=== PATIENT | female | born 1985 | race Caucasian/White ===

== ENCOUNTER 2021-08-19 11:07 | Outpatient (REF) | payer OTHER, SELFPAY ==
[2021-08-19 12:47] LABS: COVID-19 Test Negative (Negative)
== END 2021-08-19 11:08 | disposition home or self-care (01) ==
LOC: HO.LAB 11:07
PROVIDERS: Visit Provider Internal Medicine
DX: Z20.822 Contact with and (suspected) exposure to COVID-19 (principal)
CPT/HCPCS: 36415; 87635; C9803

== ENCOUNTER 2024-12-23 10:09 | Emergency (ER) | payer OTHER, SELFPAY ==
--- NOTE | ~2024-12-23 | XR_ITS ---
EXAMINATION: XR HIP 1 VIEW RIGHT WITH PELVIS HISTORY: painful COMPARISON: There are no prior studies for comparison. FINDINGS: A single AP view of the pelvis and two views of the right hip are submitted. Osseous mineralization is normal. There is no fracture or dislocation. The joint space is maintained. The soft tissues are unremarkable. XR/XR hip RT w PEL1V IMPRESSION: Unremarkable examination of the right hip. Electronically signed by: Roberth Chi MD 12/23/2024 11:12 AM EDT
[2024-12-23 10:31] VITALS: BP 117/81; PULSE 79; RESP 18; TEMP 36.8; O2SAT 99; BMI 24.7
--- NOTE | 2024-12-23 11:56 | ED_ITS ---
HPI - General Adult General Chief complaint: General Medical Stated complaint: R Hip Leg Pain Time Seen by Provider: 12/23/24 11:53 Source: patient Mode of arrival: ambulatory Limitations: no limitations History of Present Illness ED Provider: Mary Kate Berger PA-C HPI narrative: Patient is a 39 year old assigned female at with no reported medical history presenting to the emergency department today with right hip pain. Patient states that over the last few days she has had right sided hip pain that radiates into her right leg. Patient denies any dizziness, lightheadedness, abdominal pain, nausea, vomiting, fever, chills, blurry vision, double vision, loss of vision, chest pain, difficulty breathing, shortness of breath, back pain, night sweats, pain with urination, increased urinary frequency, increased urinary urgency, blood in her urine or stool, syncope or a near syncopal episode, recent trauma or falls, bowel incontinence, bladder incontinence, or any other complaints at this time. Onset (ago): day(s) Location: right (hip pain) Radiation: distal Relieving factors: none Associated symptoms: denies other symptoms Treatments prior to arrival: none Related Data Previous Rx's ?Medication ?Instructions ?Recorded prednisone 20 mg tablet 20 mg PO DAILY 7 days #7 tabs 12/23/24 Allergies Allergy/AdvReac Type Severity Reaction Status Date / Time bee pollen [BEE STINGS] Allergy Unknown UNKNOWN Verified 12/23/24 10:33 Sulfa (Sulfonamide Allergy Unknown UNKNOWN Verified 12/23/24 10:33 Antibiotics) [SULFA (SULFONAMIDE ANTIBIOTICS)] Review of Systems Constitutional: Constitutional: Reports no additional constitutional complaints, Denies chills, Denies fever(s) and Denies night sweats Eyes: Eyes: Reports no additional eye complaints, Denies blurry vision, Denies change in vision, Denies diplopia, Denies eye discharge, Denies loss of vision and Denies eye pain ENT: Denies dizziness Cardiovascular: Cardiovascular: Reports no additional cardiovascular complaints, Denies chest pain, Denies lightheadedness, Denies Loss of Consciousness and Denies dyspnea Respiratory: Respiratory: Reports no additional respiratory complaints and Denies dyspnea Gastrointestinal: Gastrointestinal: Reports no additional gastrointestinal complaints, Denies abdominal pain, Denies melena, Denies hematochezia, Denies change in bowel habits and Denies change in stool character Genitourinary: Genitourinary: Denies hematuria, Denies urinary frequency, Denies dysuria, Denies urinary incontinence, Denies urinary hesitancy and Denies urinary urgency Musculoskeletal: Musculoskeletal: Reports no additional musculoskeletal complaints, Denies numbness and Denies tingling Comments: right hip pain Neurologic: Denies dizziness, Denies loss of vision, Denies numbness and Denies tingling Psychiatric: Psychiatric: Reports no additional psychiatric complaints Endocrine: Endocrine: Reports no additional endocrine complaints Hematologic/Lymphatic: Hematologic/Lymphatic: Reports no additional hematologic/lymphatic complaints Allergic/Immunologic: Allergic/Immunologic: Reports no additional allergic/immunologic complaints [facility] Past Medical History Attestation statement: The following information was validated with the patient. Source: old records reviewed and nursing notes reviewed Social History Social History Advance Directives: No Advance Directives Information Provided: Yes Physical Exam ED Vital Signs: Vital Signs - 24 hr 12/23/24 10:31 12/23/24 12:42 Temperature 98.3 F 98.3 F Pulse Rate 79 79 Respiratory Rate 18 18 Blood Pressure 117/81 117/81 Pulse Oximetry 99 99 Oxygen Delivery Method Room Air Room Air BMI result Body Mass Index 24.7 Const General: cooperative, no acute distress, alert and awake Nutritional Appearance: well nourished Orientation/consciousness: patient oriented x3 HENMT Head: Yes normal to inspection and Yes atraumatic Ears: hearing grossly normal bilaterally and external ears normal General nose exam: Normal external nose present, no nasal discharge noted and no epistaxis Face and sinus: Yes normal facial exam, No abrasion and No laceration Mouth: Normal oral and palatal mucosa present, no drooling and no muffled voice Eyes General: appearance normal, both eyes and all related structures Periorbital: periorbital findings normal Eyelids: Yes eyelids normal Conjunctivae: conjunctivae normal Pupils: Equal, round and reactive pupils present EOM: EOMs intact bilaterally Neck Neck: Yes normal visual inspection, Yes full ROM and Yes no lymphadenopathy Resp Effort & Inspection: normal respiratory effort and able to speak in complete sentences Neuro General: patient oriented x3, moves all extremities and CN's II-XI intact bilaterally Cranial nerves: Yes Equal, round and reactive pupils present Cognition (Neuro): normal cognition Extrem General: Yes normal to inspection, Yes full ROM and Yes capillary refill normal Psych Appearance: grossly normal Mental Status: mental status grossly normal Affect: normal affect Attitude: cooperative Thought process: Normal thought process present Thought content: Normal thought content present Insight: Good insight present (Psych) Medications Administered Discontinued Medications Generic Name Dose Route Start Last Admin Trade Name Bg PRN Reason Stop Dose Admin Ketorolac Tromethamine 15 mg 12/23/24 12:10 12/23/24 12:38 Ketorolac Tromethamine 15 Mg/Ml Vial IM 12/23/24 12:11 15 mg ONCE ONE Administration Medical Decision Making Medical Decision Making [facility] Narrative: Patient is a 39 year old assigned female at with no reported medical history presenting to the emergency department today with right hip pain. Patient's physical exam was unremarkable. Patient's right hip x-ray showed no acute process. Patient's clinical presentation is most consistent with bursitis of the right hip. I explained my physical exam findings as well as all test results to the patient. I answered all questions asked by the patient. I stressed the importance of the patient taking her medication as directed (either prescribed or as the over the counter packaging recommends). I stressed the importance of the patient following up with her primary care provider and an orthopedic provider. I stressed the importance of the patient returning to the emergency department immediately if her symptoms were to worsen or if she were to develop any dizziness, shortness of breath, difficulty breathing, chest pain, blurry vision, loss of vision, nausea, vomiting, abdominal pain, fever, chills, back pain, or any other complaints. Patient verbalized agreement and understanding with this treatment plan and discharge. Differential Diagnosis Differential Diagnoses: The differential diagnosis associated with the presentation includes Bursitis Arthritis Hip pain Admission/Observation Consideration of admission/observation: Escalation of care including admission/observation considered Patient would have been admitted to the hospital had her work up had any findings where hospital admission was appropriate and her clinical presentation warranted hospital admission. Independent Interpretation I performed an independent interpretation of an: Plain X-Ray Interpretation: My interpretation is in agreement with the radiologist's impression of this imaging study. EXAMINATION: XR HIP 1 VIEW RIGHT WITH PELVIS HISTORY: painful COMPARISON: There are no prior studies for comparison. FINDINGS: A single AP view of the pelvis and two views of the right hip are submitted. Osseous mineralization is normal. There is no fracture or dislocation. The joint space is maintained. The soft tissues are unremarkable. XR/XR hip RT w PEL1V IMPRESSION: Unremarkable examination of the right hip. Electronically signed by: Roberth Chi MD 12/23/2024 11:12 AM EDT RP Dictated By: Roberth Chi MD Signed By: Electronically signed by Roberth Chi MD 12/23/24 1112 Radiology Impression Discussion of test interpretation with radiology: I have reviewed the radiologist's reading. Discharge Plan Discharge Clinical Impression: Bursitis Patient Disposition: Home, Self-Care Instructions: Hip Bursitis (ED) Additional Instructions: Follow up with your primary care provider and the orthopedic team. Return to the emergency department immediately if your symptoms worsen or if you develop any numbness, tingling, dizziness, shortness of breath, difficulty breathing, chest pain, blurry vision, loss of vision, nausea, vomiting, abdominal pain, fever, chills, back pain, or any other complaints. Please see the information below about our Patient Portal. If you are not yet enrolled in the [facility] Patient Portal, you will receive an enrollment email invitation following your visit to any [facility] setting. You may also self-enroll in the Patient Portal by visiting our website: [email or web address] The following information is required to access the Patient Portal: - Your [facility] Medical Record Number - Your personal home email address (must match what is in your electronic medical record, Registration staff can assist with this) - Name - Date of Capabilities of the Patient Portal: - Message some providers - View upcoming appointments - Access your health summary, medical history, and visit history - View current conditions and allergies - View procedure and lab results - View your medications, including guidelines, side effects, and precautions - Complete pre-appointment questionnaires requested by your provider - Ready summary reports of your office visits and procedures To access the Patient Portal Mobile [employer], follow these directions: - Search [employer] in the [employer] Store or Google [employer] Store - Download the [employer] - Search for [facility] - Enter your login/password Prescriptions: New prednisone 20 mg tablet 20 mg PO DAILY 7 Days Qty: 7 0RF Referrals: [facility] Family Medicine [Provider Group] (Call to establish and follow up with a primary care provider. If you already have a primary care provider, please follow up with them.) [facility] Primary Care, [facility] [Provider Group] (Call to establish and follow up with a primary care provider. If you already have a primary care provider, please follow up with them.) [facility] [Provider Group] (Call to establish and follow up with a primary care provider. If you already have a primary care provider, please follow up with them.) [facility] Primary Care, [facility] [Provider Group] (Call to establish and follow up with a primary care provider. If you already have a primary care provider, please follow up with them.) [facility] [Provider Group] (Call to establish and follow up with a primary care provider. If you already have a primary care provider, please follow up with them.) [facility] Orth[facility] [Provider Group] (Call to establish and follow up with the orthopedic team for your right hip pain. ) Interventions: ED Discharge Assessment Last Done: 12/23/24 12:42 Discharge Date/Time: 12/23/24 12:42 Print Language: Botswanan
[2024-12-23] MEDS: Ketorolac Tromethamine 15 MG/ML VIAL IM (12:38)
[2024-12-23 12:42] VITALS: BP 117/81; PULSE 79; RESP 18; TEMP 36.8; O2SAT 99
== END 2024-12-23 12:42 | disposition home or self-care (01) ==
PROVIDERS: Emergency Provider Emergency Medicine
DX: M70.71 Other bursitis of hip, right hip (principal); M79.604 Pain in right leg
CPT/HCPCS: 73502; 96372; 99283; 99284; J1885

== ENCOUNTER → 2024-12-23 10:40 | Outpatient (BNV) | payer OTHER, SELFPAY | PROVIDERS: Visit Provider Radiology Diagnostic Radiology | DX: M25.551 Pain in right hip (principal) | CPT/HCPCS: 73502 ==

== ENCOUNTER 2025-03-03 12:30 | Outpatient (AMB) | payer OTHER, SELFPAY ==
--- NOTE | 2025-03-03 12:39 | MHC.OFFVIS ---
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 Patient reports ongoing pain for about 2 months. Patient mentions that her pain is on the lateral aspect of her hip and it moves down to her leg. She notices that her pain is worse going up and down the stairs. Patient mentions that her hip gives out depending on what she does. She has tried taking Ibuprofen with mild relief. IMPRESSION: Unremarkable examination of the right hip. 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 Fernandes is a 39-year-old female who presents to the office today for evaluation of right hip pain. She points to the area that is anterior and slightly lateral to the hip. She denies groin pain. She reports that the pain has been ongoing for the past 2 months. She denies any injury or trauma to the area. Her pain did become so severe that she presented to the emergency department on 12/23/2024 where x-rays were obtained and negative for any acute fracture dislocation. She was diagnosed with bursitis at that time and was instructed to follow up with orthopedics outpatient for further evaluation and treatment. She was prescribed prednisone by the emergency department for 4 days which did help to alleviate her pain. Additionally, she has been taking ibuprofen which does help some but does not alleviate the pain completely. [facility] Social History (Updated 03/03/25 @ 12:44 by Tyrell Barrera) Alcohol intake: never Patient Tobacco Use Status: Current everyday Tobacco user Cigarettes Per Day: 10 Current occupational status: unemployed Physical Exam Vital Signs: BMI result Body Mass Index 24.5 Const General: cooperative, healthy appearing and no acute distress Resp Effort & Inspection: normal respiratory effort and able to speak in complete sentences Extrem Other: Right hip:Full hip ROM in all planes. No tenderness to palpation over the greater trochanteric bursa. Tenderness to palpation over the hip flexor. 4/5 strength with resisted hip flexion due to pain. Able to perform full knee extension, abduction, and abduction. Able to perform straight leg raise with pain at the hip flexor. NVI. Assessment & Plan Assessment & Plan (1) Tendinitis of right hip flexor: Code(s): M76.891 - Other specified enthesopathies of right lower limb, excluding foot Category: Medical Plan Ms. Fernandes is a 39-year-old female who presents to the office today for evaluation of right hip pain. She points to the area that is anterior and slightly lateral to the hip. She denies groin pain. She reports that the pain has been ongoing for the past 2 months. She denies any injury or trauma to the area. Her pain did become so severe that she presented to the emergency department on 12/23/2024 where x-rays were obtained and negative for any acute fracture dislocation. She was diagnosed with bursitis at that time and was instructed to follow up with orthopedics outpatient for further evaluation and treatment. She was prescribed prednisone by the emergency department for 4 days which did help to alleviate her pain. Additionally, she has been taking ibuprofen which does help some but does not alleviate the pain completely. While in the office today, we discussed hip flexor tendinitis and the treatment options. We discussed the role of physical therapy in which the patient is amenable to attend. Additionally, she does state that the prednisone ibuprofen was helping but did not alleviate her pain completely. Therefore, I have sent a prescription for Celebrex to the pharmacy to assist with inflammation and pain. She will discontinue the ibuprofen at this time. She will follow up in 6 weeks by telephone if she continues to have pain, but I am happy to see her sooner if needed. X-rays of the right hip which were obtained on 12/23/2024 revealed no fracture or dislocation. Unremarkable examination. Orders: Orders PT Evaluation and Treatment Today M76.891 - Other specified enthesopathies of right lower limb, excluding foot Medications: New celecoxib (Celebrex) 200 mg PO BID 60 caps 0RF 30 days Discontinued prednisone Discontinued Reason: Patient no longer taking 20 mg PO DAILY 7 days 7 tabs 0RF Coding Level of Care Code New Pt Level 3 (65735) Diagnoses Tendinitis of right hip flexor M76.891
[2025-03-03 12:44] VITALS: BMI 24.5
== END 2025-03-03 12:59 | disposition home or self-care (01) ==
LOC: HO.HOS 12:31
PROVIDERS: Visit Provider Physician Assistant
DX: M76.891 Other specified enthesopathies of right lower limb, excluding foot (principal)
CPT/HCPCS: 99203

== ENCOUNTER → 2025-03-03 12:30 | Outpatient (BNVA) | payer OTHER, SELFPAY | PROVIDERS: Visit Provider Physician Assistant | DX: M76.891 Other specified enthesopathies of right lower limb, excluding foot (principal) | CPT/HCPCS: 99202 ==

== ENCOUNTER 2025-04-24 13:22 | Emergency (ER) | payer OTHER, SELFPAY ==
[2025-04-24 13:34] VITALS: BP 134/77; PULSE 84; RESP 20; TEMP 36.4; O2SAT 98; BMI 25.9
--- NOTE | 2025-04-24 13:34 | ED_ITS ---
HPI - General Adult General Chief complaint: General Medical Stated complaint: Blood sugar high Time Seen by Provider: 04/24/25 14:24 Source: patient Mode of arrival: ambulatory Limitations: no limitations History of Present Illness ED Provider: HPI narrative: This is a 40-year-old woman who is a smoker, from [facility], on Suboxone for 7 years no ongoing drug use, otherwise healthy, reports have not hemoglobin A1c done at [facility] and was told she is prediabetic and this has been making her very nervous, she states that she has been taking her glucose at home before she eats and after she eats, she has had general malaise, chest pain or palpitations, concerned as she has diabetes in her family. 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 Related Data Home Medications ?Medication ?Instructions ?Recorded ?Confirmed buprenorphine 12 mg-naloxone 3 mg 1 film buccal Q24H 0 03/03/25 sublingual film (Suboxone) Previous Rx's ?Medication ?Instructions ?Recorded celecoxib 200 mg capsule 200 mg PO BID #60 caps 03/30 Allergies Allergy/AdvReac Type Severity Reaction Status Date / Time bee pollen (BEE STINGS) Allergy Unknown UNKNOWN Verified 04/24/25 13:37 Sulfa (Sulfonamide Allergy Unknown UNKNOWN Verified 04/24/25 13:37 Antibiotics) (SULFA (SULFONAMIDE ANTIBIOTICS)) Review of Systems 2 Constitutional: Constitutional: Reports as per [facility] Social History Social History (Updated 03/03/25 @ 12:44 by Tyrell Barrera) Alcohol intake: never Patient Tobacco Use Status: Current everyday Tobacco user Cigarettes Per Day: 10 Advance Directives: No Advance Directives Information Provided: Yes Current occupational status: unemployed Physical Exam ED Vital Signs: Vital Signs - 24 hr 04/24/25 13:34 Temperature 97.5 F Pulse Rate 84 Respiratory Rate 20 Blood Pressure 134/77 Pulse Oximetry 98 Oxygen Delivery Method Room Air BMI result Body Mass Index 25.9 Const Other: * Gen: ?Overall well-appearing patient * CV: RRR, no obvious murmurs appreciated * Resp: ?No wheezing rales rhonchi no stridor moving air well * Abd: ?Bowel sounds are present, no tenderness no rebound no rigidity * MSK: FROM, strength 5/5 all extremities * Skin: Warm, dry, intact, * Neuro: ?Alert and oriented x3, moving upper and lower extremities symmetrically, no obvious facial asymmetry noted Course Course Course Narrative: This is a Rapid Medical Examination (RME) performed by Fani Cisneros PA-C in triage. Full HPI, ROS, assessment and treatment plan per primary provider in the Main ED. Hx: 40 yo F on suboxone here w/ concerns of elevated blood sugars. reports having routine blood work - saw that her A1C was elevated. cannot recall what the number was. has been monitoring her sugars at home - they've been between 130-170. also reports recent chest pains/sweats and is unsure if this is related. reports concern as her father recently passed from DM complications PE/vitals: well appearing Plan: labs Medical Decision Making Medical Decision Making [facility] Narrative: Overall patient is well-appearing, she is healthy, on Suboxone, her blood work did not reveal any evidence for dehydration, electrolyte derangements, or anything else to suspect diabetic related emergencies, she has had quite a bit of anxiety regarding being told that she is prediabetic as well as checking a glucose at home and reading information online regarding potential side effects of diabetes. Her physical examination is reassuring vital signs are stable on blood work without any abnormalities we will add on ECG to make sure there was no underlying issues related to ACS, she is PERC negative. Differential Diagnosis Differential Diagnoses: The differential diagnosis associated with the presentation includes (ACS, PE, dehydration, DKA, new onset diabetes) Admission/Observation Consideration of admission/observation: Escalation of care including admission/observation considered Lab Data [facility] Lab Attestation statement: I reviewed the patient's lab results. 04/24/25 13:45 04/24/25 13:45 Labs: Lab Results 04/24/25 04/24/25 04/24/25 Range/Units 13:45 13:55 13:57 WBC 7.4 (4.8-10.8) X10*3/uL RBC 3.97 L (4.20-5.50) X10*6/uL Hgb 12.1 (12.0-16.0) g/dl Hct 35.0 L (37.0-47.0) % MCV 88.2 (80.0-98.0) fL MCH 30.5 (27.0-33.0) pg MCHC 34.6 (31.0-35.0) g/dl RDW 13.4 (11.0-16.0) % Plt Count 174 (160-400) X10*3/uL MPV 10.1 (9.4-12.3) fL Immature Gran % (Auto) 0.3 (0.0-0.4) % Neut % (Auto) 50.7 (45-73) % Lymph % (Auto) 38.4 (20-40) % Drew % (Auto) 6.2 (2-11) % Eos % (Auto) 3.6 (0-4) % Baso % (Auto) 0.8 (0-2) % Lymph # (Auto) 2.9 (1.2-4.9) X10*3/uL Drew # (Auto) 0.5 (0.1-1.2) X10*3/uL Eos # (Auto) 0.3 (0.0-0.4) X10*3/uL Baso # (Auto) 0.1 (0.0-0.2) X10*3/uL Abs Immat Gran (auto) 0.02 (0.00-0.03) X10*3/uL Absolute Neuts (auto) 3.8 (2.0-8.3) x10*3/uL Absolute Nucleated RBC 0.000 (0.0-0.012) X10*3/uL Nucleated RBC % (auto) 0.0 (0.0-0.2) /100WBC Sodium 139 (135-145) mmol/L Potassium 3.5 (3.3-5.1) mmol/L Chloride 101 (96-108) mmol/L Carbon Dioxide 27 (22-29) mmol/L Anion Gap 15 (12-20) BUN 6 L (9-16) mg/dL Creatinine 0.73 (0.5-1.4) mg/dL Estim Creat Clear Calc 95.4 Estimated GFR > 60 POC Glucose 114 (60-115) mg/dL Random Glucose 119 H (60-115) mg/dL Calcium 9.2 (8.4-10.2) mg/dL Magnesium 1.6 (1.6-2.6) mg/dL Total Bilirubin 0.4 (0.0-1.0) mg/dL AST 31 (5-31) U/L ALT 30 (0-31) U/L Alkaline Phosphatase 47 (39-117) U/L Total Protein 7.0 (6.5-8.0) g/dL Albumin 4.8 (3.5-5.0) g/dL Lipase 12 (8-78) U/L Beta HCG, Quant < 2 mIU/mL Urine Color Yellow Urine Appearance Clear Urine pH 6.0 (5.0-9.0) Ur Specific [place] <= 1.005 (1.005-1.025) Urine Protein Negative (Neg-Trace) mg/dL Urine Glucose (UA) Negative (Negative) mg/dL Urine Ketones Negative (Negative) mg/dL Urine Blood Negative (Negative) Urine Nitrite Negative (Negative) Ur Leukocyte Esterase Negative (Negative) Independent Interpretation I performed an independent interpretation of an: EKG (67 beats per minute otherwise normal ECG without dysrhythmia, AV tiarra blocks or ST-T changes to suspect underlying ACS, my independent interpretation) Tests considered The following testing was considered but not selected: Chest x-ray Social Determinants Patient?s care significantly limited by Social Determinants of Health including: Low income and Other Social Determinant of Health (No primary care provider) Discharge Plan Discharge Clinical Impression: Generalized weakness Patient Disposition: Home, Self-Care Additional Instructions: Please ask nurses for outpatient resources to find a PCP, your blood work has been completely unremarkable, and urine is a telltale sign that you do not have spillage of glucose, your urinalysis completely unremarkable that just tells me you do not have episodes of elevated glucose otherwise we would notice it in a urinalysis, I would not concentrate on the fact that you were told about your hemoglobin A1c, and also I would really stay away from any type of social media or Internet information as your only find the worst outcomes from the people that post regarding their worst possible experiences with healthcare etc. instead concentrate on your mental health, getting rest, you can change the things that you can change which is quitting smoking which is actually the worse risk factor for your longevity quite honestly, everything else you are doing great, I wish you the best of health Prescriptions: No Action celecoxib 200 mg capsule 200 mg PO BID Qty: 60 0RF buprenorphine-naloxone [Suboxone] 12-3 mg film 1 film buccal Q24H Print Language: Nicaraguan
[2025-04-24 13:48] LABS: MANUAL DIFF FLAG NO
[2025-04-24 13:53] LABS: Hematocrit 35.0 % (37.0-47.0); Hemoglobin 12.1 g/dl (12.0-16.0); Imm Gran Abs Auto 0.02 X10*3/uL (0.00-0.03); Imm Gran Pct Auto 0.3 % (0.0-0.4); Lymphocytes Absolute Auto 2.9 X10*3/uL (1.2-4.9); Mean Corpuscular HGB Conc 34.6 g/dl (31.0-35.0); Mean Corpuscular Hemoglobin 30.5 pg (27.0-33.0); Mean Corpuscular Volume 88.2 fL (80.0-98.0); NRBC Abs Auto 0.000 X10*3/uL (0.0-0.012); NRBC Pct Auto 0.0 /100WBC (0.0-0.2); Platelet Count 174 X10*3/uL (160-400); Red Blood Count 3.97 X10*6/uL (4.20-5.50); White Blood Count 7.4 X10*3/uL (4.8-10.8)
[2025-04-24 14:00] LABS: Glucose, Whole Blood 114 mg/dL (60-115)
[2025-04-24 14:15] LABS: Appearance Urine Clear; Glucose Urine UA Negative (Negative); PH 6.0 (5.0-9.0); Specific Gravity - Urine <= 1.005 (1.005-1.025)
[2025-04-24 14:22] LABS: Alanine Aminotransferase 30 U/L (0-31); Albumin Level 4.8 g/dL (3.5-5.0); Alkaline Phosphatase 47 U/L (39-117); Anion Gap 15 (12-20); Aspartate Amino Transferase 31 U/L (5-31); Blood Urea Nitrogen 6 mg/dL (9-16); Calcium 9.2 mg/dL (8.4-10.2); Carbon Dioxide 27 mmol/L (22-29); Chloride 101 mmol/L (96-108); Creatinine Clr Calc Pharmacy 95.4; Estimated Glomerular Filt Rate > 60; Lipase 12 U/L (8-78); Magnesium 1.6 mg/dL (1.6-2.6); Potassium 3.5 mmol/L (3.3-5.1); Sodium 139 mmol/L (135-145); Total Protein 7.0 g/dL (6.5-8.0)
--- NOTE | 2025-04-24 14:52 | ECG_ITS ---
Test Reason : weakness Blood Pressure : */* mmHG Vent. Rate : 67 BPM Atrial Rate : 67 BPM P-R Int : 150 ms QRS Dur : 76 ms QT Int : 420 ms P-R-T Axes : 56 29 33 degrees QTcB Int : 443 ms Normal sinus rhythm with sinus arrhythmia Normal ECG No previous ECGs available Referred By: Breezy Love Electronically Signed By: ELIZA LOZANO MD
[2025-04-24 15:07] VITALS: BP 134/77; PULSE 84; RESP 20; TEMP 36.4; O2SAT 98
--- NOTE | 2025-04-24 15:08 | PC.NURSE ---
Pt given resources for outpatient services, pt in agreement with DC at this time
== END 2025-04-24 15:09 | disposition home or self-care (01) ==
PROVIDERS: Physician Assistant Medical; Emergency Provider Emergency Medicine
DX: R07.9 Chest pain, unspecified (principal); R00.2 Palpitations; R42 Dizziness and giddiness; F19.90 Other psychoactive substance use, unspecified, uncomplicated
CPT/HCPCS: 36415; 80053; 81003; 82947; 83690; 83735; 84702; 85025; 93005; 99283

== ENCOUNTER → 2025-04-24 14:52 | Outpatient (BNV) | payer OTHER, SELFPAY | PROVIDERS: Emergency Provider Emergency Medicine; Visit Provider Internal Medicine Cardiovascular Disease | DX: R53.1 Weakness (principal) | CPT/HCPCS: 93010 ==

== ENCOUNTER 2025-05-12 11:03 | Outpatient (RCR) | payer OTHER, SELFPAY ==
--- NOTE | 2025-05-04 09:00 | MHC.PT.EP ---
[facility] [place] Office [place] Office [place] Office [address] [phone] F: [phone] F: [phone] F: [phone] F: [phone] Physical Therapy Plan of Care Date of Evaluation: 04/28/25 Date of Surgery: Diagnosis: RIGHT HIP PAIN (KP) Assessment: XIMENA IS A PLEASANT 40 YO FEMALE WHO REPORTS PAIN OF ABOUT 4 MONTHS DURATION, NO LAVERNE. SHE REPORTS PAIN OCCURS WHEN SHE GOES TO MOVE AND FEELS SHARP PAIN WHICH THEN SHOOTS DOWN LEG FROM ANTERIOR HIP. PAIN WILL OCCUR AT NIGHT WELL. HAS 7 YEAR OLD AT HOME, LIVES ON [address]. SHE NOTES STAIRS ARE CHALLENGING BUT SHE IS ABLE TO COMPLETE WITH INCREASED TIME ALLOWED. UPON EXAM SHE DEMONSTRATES ALTERED HIP MECHANICS AND GAIT, DECREASED HIP ROM AND STRENGTH, ALTERED SOFT TISSUE MOBILITY, INCREASED PAIN. FUNCTIONAL LIMITATIONS INCLUDE DECREASED OMI TO WALKING, STANDING, PUSHING AND LIFTING. SHE REPORTS DECREASED PARTICIPATION IN COMMUNITY AND RECREATIONAL ACTIVITIES, SHE REPORTS DISRUPTED SLEEP Frequency and Duration: The patient will be seen 2 X WEEK FOR 4 WEEKS Short Term Goals: INITIATE HEP AND PROMOTE SELF MANAGEMENT OF SYMPTOMS Marketing Sales Manager Goals: RESTORE FULL ACTIVE ROM IN ALL HIP PLANES WITHOUT PAIN IMPROVE LE AND HIP STABILIZER STRENGTH TO A MINIMUM OF 4+/5 T/O TO DEMONSTRATE PAINFREE PERFORMANCE OF FUNCTIONAL TASKS SUCH STAIR CLIMBING AND LIFTING FROM HANS UP TO 20# TO RETURN TO RECREATIONAL TASKS WITHOUT PAIN OR COMPENSATION DEMONSTRATE INDEPENDENCE WITH HEP AND SELF MANAGEMENT OF SYMPTOMS Treatment Plan: Modalities to reduce pain, spasms and effusion. Manual therapy to restore motion and function. Therapeutic exercise to improve strength and flexibility. Neuromuscular re-education for posture and balance. Therapeutic activities to return to functional activities of daily living. Electronically signed by: MARGE MALDONADO PT DPT Please sign and return to therapist. Thank you for your referral.
== END 2025-06-09 09:52 | disposition home or self-care (01) ==
LOC: HO.PT 11:03
PROVIDERS: Visit Provider Physician Assistant
DX: M76.891 Other specified enthesopathies of right lower limb, excluding foot (principal)
CPT/HCPCS: 97110; 97116; 97162

== ENCOUNTER 2025-07-10 10:31 | Outpatient (REF) | payer OTHER, SELFPAY ==
--- NOTE | ~2025-07-10 | XR_ITS ---
CLINICAL HISTORY: Rule out foreign body, pre MRI. 2 views right femur Comparison: None Findings: No fracture or dislocation. No periostitis or bony destruction. Normal bone mineraliztion and soft tissues. No radiopaque foreign bodies. Impression: 1. No radiopaque foreign body demonstrated This document has been electronically signed by: Chapin Terry MD on 07/10/2025 11:34:40
== END 2025-07-10 10:32 | disposition home or self-care (01) ==
LOC: HO.MRI 10:31
PROVIDERS: Visit Provider Physician Assistant
DX: M76.891 Other specified enthesopathies of right lower limb, excluding foot (principal)
CPT/HCPCS: 73552

== ENCOUNTER → 2025-07-10 11:11 | Outpatient (BNV) | payer OTHER, SELFPAY | PROVIDERS: Visit Provider Radiology Diagnostic Radiology | DX: Z03.89 Encounter for observation for other suspected diseases and conditions ruled out (principal) | CPT/HCPCS: 73552 ==

== ENCOUNTER 2025-08-03 18:05 | Outpatient (REF) | payer OTHER, SELFPAY ==
--- NOTE | ~2025-08-03 | MR_ITS ---
CLINICAL HISTORY: M76.891 - Other specified enthesopathies of right lower limb, excluding ... Exam: Unenhanced MRI of the right hip. Comparison: Radiographs dated 07/10/2025. Findings: Osseous structures: There is a subchondral multiseptate T2 hyperintense and T1 hypointense lesion involving the posterior aspect of the left acetabulum measuring 16 x 8 mm (3; 11), by 11 mm craniocaudal dimension (4; 17 and 7; 20)., likely subchondral cysts or small interosseous geode. No surrounding bone marrow edema to suggest aggressive lesion. Remaining bone marrow signal intensities are well-maintained with no other focal lesions, fracture lines or bone marrow edema. Tendons: There is a minimal tendinosis involving gluteus medius tendon at its insertion onto the femoral greater trochanter (for example, 4; 12 and 13). No definable tendon tears. Remaining tendon signal intensities are generally maintained with no other significant tendinopathy. Acetabular labrum: No focal acetabular labral tears appreciated. Cartilage: No cartilaginous defects or delamination appreciated. Soft tissues: No significant joint effusion. No circumscribed collections. Impression: 1. Likely small subchondral cysts or interosseous geode involving the posterior acetabulum, likely related to sequela of minimal degenerative disease. 2. Slight tendinosis of the gluteus medius tendon. No definable tendon tears. 3. No other evidence of internal derangement. This document has been electronically signed by: Slim Argueta MD on 08/04/2025 15:49:39
== END 2025-08-03 18:06 | disposition home or self-care (01) ==
LOC: HO.MRI 18:05
PROVIDERS: Visit Provider Physician Assistant
DX: M76.891 Other specified enthesopathies of right lower limb, excluding foot (principal)
CPT/HCPCS: 73721

== ENCOUNTER → 2025-08-03 18:16 | Outpatient (BNV) | payer OTHER, SELFPAY | PROVIDERS: Visit Provider Radiology Diagnostic Radiology | DX: M76.891 Other specified enthesopathies of right lower limb, excluding foot (principal) | CPT/HCPCS: 73721 ==